=== PATIENT | female | born 2000 | race Caucasian/White ===

== ENCOUNTER 2024-09-12 07:46 | Emergency (ER) | payer OTHER ==
[~2024-09-12] VITALS: Ht 165.1 cm; Wt 64.5 kg
[2024-09-12] MEDS ORDERED: [UNRECOGNIZED DRUG - CODE] PO (07:59)
[2024-09-12] MEDS ORDERED: VITATAB47 PO (07:59)
[2024-09-12 08:56] LABS: BASO # 0.0 10^3/uL (0.0-0.2); BASO % 0.4 % (0.0-1.0); EOS # 0.1 10^3/uL (0.0-0.5); EOS % 2.0 % (0.0-3.0); LYMPH # 1.3 10^3/uL (1.5-5.0); LYMPH % 25.9 % (24.0-44.0); MONO # 0.5 10^3/uL (0.0-0.8); MONO % 10.6 % (2.0-8.0); NEUTROPHILS # 3.0 10^3/uL (1.5-8.5); NEUTROPHILS % 60.7 % (36.0-66.0); PLATELET COUNT, AUTOMATED 185 10^3/uL (150-450)
[2024-09-12 09:20] LABS: HCG, SERUM QUALITATIVE POSITIVE (NEGATIVE)
[2024-09-12 09:39] LABS: HCG, SERUM QUANTITATIVE 813.6 MIU/ML (<4.2)
[2024-09-12 09:52] LABS: KETONE, URINE AUTO RFX NEGATIVE (NEGATIVE); LEUKOCYTE ESTERASE UR AUTO RFX NEGATIVE (NEGATIVE); NITRITE, URINE AUTO RFX NEGATIVE (NEGATIVE); RBC, URINE AUTO RFX 0 /HPF (0-3); SQUAM EPITHELIAL CELL UR AURFX 3 /HPF (0-6); WBC, URINE AUTO RFX 0 /HPF (0-3)
[2024-09-12 11:08] LABS: Trichomonas vaginalis (AMP) NOT DETECTED (NEGATIVE)
[2024-09-12 11:30] VITALS: BP 106/54
[2024-09-12 11:32] LABS: GC DNA AMPLIFICATION NEGATIVE (NEGATIVE)
[2024-09-12 11:45] VITALS: TEMP 98.5; O2SAT 100
== END 2024-09-12 12:00 | disposition home or self-care (01) ==
LOC: M ED 07:46
DX: O20.0 Threatened abortion (principal); O34.80 Maternal care for other abnormalities of pelvic organs, unspecified trimester; N83.291 Other ovarian cyst, right side; Z91.011 Allergy to milk products; Z79.810 Long term (current) use of selective estrogen receptor modulators (SERMs)